=== PATIENT | female | born 1995 | race African-American/Black ===

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

== ENCOUNTER 2017-05-21 17:08 | Emergency (ER) | payer OTHER ==
[~2017-05-21] VITALS: Ht 160 cm; Wt 130.5 kg
[2017-05-21] MEDS ORDERED: ROBITUSSIN AC,T10 ML PO (19:29)
[2017-05-21] MEDS ORDERED: MEDROL DOSEPAK4 MG PO (19:29)
[2017-05-21] MEDS ORDERED: VENTOLIN HFA18 GM IH (19:29)
[2017-05-21] MEDS ORDERED: ZITHROMAX Z-PA250 MG PO (19:29)
[2017-05-21 19:35] LABS: INFLUENZA A VIRAL ANTIGEN NEGATIVE; INFLUENZA B VIRAL ANTIGEN NEGATIVE
[2017-05-21 19:56] VITALS: BP 140/96
== END 2017-05-21 19:57 | disposition home or self-care (01) ==
LOC: EME 17:08
PROVIDERS: Physician Assistant
DX: J40 Bronchitis, not specified as acute or chronic (principal); J02.9 Acute pharyngitis, unspecified; M54.5 Low back pain; Z72.0 Tobacco use
CPT/HCPCS: 71020; 87502; 87651 90; 94640; 99281; 99284

== ENCOUNTER 2017-10-29 20:14 | Emergency (ER) | payer OTHER ==
[~2017-10-29] VITALS: Ht 160 cm; Wt 128.4 kg
[~2017-10-29 20:14] MED LIST changes: +MEDROL DOSEPAK4 MG PO; +ROBITUSSIN AC,T10 ML PO; +VENTOLIN HFA18 GM IH; +ZITHROMAX Z-PA250 MG PO
[2017-10-29 21:12] LABS: HEMATOCRIT 39.3 % (36.0-46.0); HEMOGLOBIN 13.7 G/DL (11.9-15.5); MCH 31.7 PG (29.0-34.0); MCHC 34.9 G/DL (30.0-36.0); PLATELET COUNT 308 K/uL (156-360); RBC DIS.WIDTH-CV 11.9 % (11.8-14.6); RBC DIS.WIDTH-SD 39.9 % (39-53); RED BLOOD COUNT 4.32 M/uL (3.80-5.20); WHITE BLOOD COUNT 6.3 K/uL (4.1-10.2)
[2017-10-29 21:30] LABS: CHLORIDE 106 mEq/L (99-109); POTASSIUM 3.5 mEq/L (3.7-5.4); SODIUM 140 mEq/L (136-147)
[2017-10-29 21:31] LABS: GLUCOSE 87 mg/dL (70-99)
[2017-10-29 21:35] LABS: CREATININE 0.8 mg/dL (0.6-1.3); GFR ESTIMATE (CALCULATED) > 59 mL/min/
[2017-10-29 21:36] LABS: UREA NITROGEN (BUN) 8 mg/dL (9-23)
[2017-10-29 21:55] LABS: ALBUMIN 4.4 g/dL (3.2-4.8)
[2017-10-29 21:58] LABS: TOTAL PROTEIN 8.5 g/dL (6.4-8.3)
[2017-10-29 22:00] LABS: TOTAL BILIRUBIN 0.1 mg/dL (0.0-1.0)
[2017-10-29 22:01] LABS: ALKALINE PHOSPHATASE 98 IU/L (3-129)
[2017-10-29 22:04] LABS: ALT (GPT) 30 IU/L (3-49); AST (GOT) 28 IU/L (2-34)
[2017-10-29 22:05] LABS: LIPASE 21 U/L (1.0-51.0)
[2017-10-29 22:07] LABS: DIRECT BILIRUBIN 0.2 mg/dL (0.0-0.3)
[2017-10-29 22:11] LABS: QUANTITATIVE HCG < 4.0 MIU/ML
[2017-10-29] MEDS ORDERED: MOTRIN800 MG PO (22:39)
[2017-10-29] MEDS ORDERED: ZOFRAN ODT4 MG PO (22:39)
[2017-10-29 22:51] LABS: APPEARANCE CLOUDY ((CLEAR)); BILIRUBIN NEGATIVE; BLOOD LARGE; COLOR AMBER ((YELLOW)); GLUCOSE (STRIP) NEGATIVE; KETONES NEGATIVE; LEUKOCYTES MODERATE; NITRITE NEGATIVE; PROTEIN (STRIP) 100; SPECIFIC GRAVITY 1.026 (1.000-1.030); UROBILINOGEN 0.2 MG/DL (0.2-1.0)
[2017-10-29] MEDS ORDERED: NASAL DECONGEST30 MG PO (23:12)
[2017-10-29 23:16] LABS: BACTERIA 3+ /HPF; EPITHELIAL CELLS 3+ /HPF; MUCUS RARE /LPF; RED BLOOD CELLS 0-5 /HPF (0-5); WHITE BLOOD CELLS 15-20 /HPF (0-5)
[2017-10-29] MEDS ORDERED: KEFLEX500 MG PO (23:23)
[2017-10-30 00:21] VITALS: BP 120/74
== END 2017-10-30 00:22 | disposition home or self-care (01) ==
LOC: RME 20:14 → EME 20:14 → RME 10-30 00:22
PROVIDERS: Nurse Practitioner Family
DX: J11.1 Influenza due to unidentified influenza virus with other respiratory manifestations (principal); J11.2 Influenza due to unidentified influenza virus with gastrointestinal manifestations; R11.2 Nausea with vomiting, unspecified; N39.0 Urinary tract infection, site not specified; E66.01 Morbid (severe) obesity due to excess calories; F17.200 Nicotine dependence, unspecified, uncomplicated; J45.909 Unspecified asthma, uncomplicated; G47.30 Sleep apnea, unspecified
CPT/HCPCS: 80048; 80076; 81003; 83690; 84702; 85027; 87086; 99281; 99285; J1885; J2405; J7030